=== PATIENT | female | born 2000 ===

== ENCOUNTER 2024-09-20 21:29 | Inpatient (IN) | payer MEDICAID, SELFPAY ==
[2024-09-20 21:50] VITALS: BP 133/70; PULSE 70; RESP 16; TEMP 37.4; O2SAT 98; BMI 26.0
[2024-09-21] MEDS: traZODone HCL 50 MG TABLET PO
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
[2024-09-21 07:31] VITALS: BP 124/70; PULSE 95; RESP 14; TEMP 36.6; O2SAT 98
[2024-09-21 08:26] LABS: Estimated Average Glucose 88 mg/dL; Hemoglobin A1C 103.3152 umol/L; Hemoglobin A1c % 4.7 % (<6.0); Total Hemoglobin (HGBA1C) 3656.3042 umol/L
[2024-09-21 08:36] LABS: Alanine Aminotransferase 16 U/L (0-31); Albumin Level 4.7 g/dL (3.5-5.0); Alkaline Phosphatase 72 U/L (39-117); Anion Gap 15 (12-20); Aspartate Amino Transferase 23 U/L (5-31); Bilirubin Total 0.8 mg/dL (0.0-1.0); Blood Urea Nitrogen 11 mg/dL (9-16); Calcium 9.3 mg/dL (8.4-10.2); Carbon Dioxide 25 mmol/L (22-29); Chloride 105 mmol/L (96-108); Cholesterol 197 mg/dL (<200); Creatinine Clr Calc Pharmacy 100.1; Estimated Glomerular Filt Rate > 60; Glucose Random 92 mg/dL (60-115); HDL Cholesterol 74 mg/dL (>40); LDL Cholesterol Calculated 103 mg/dL (<100); Potassium 3.5 mmol/L (3.3-5.1); Sodium 141 mmol/L (135-145); Total Protein 7.4 g/dL (6.5-8.0); Triglycerides 100 mg/dL (<150)
--- NOTE | 2024-09-21 09:58 | P.HPPS_ITS ---
[facility] Date of Service: 09/21/24 Chief Complaint: unspecified depressive disorder, Bord per disorder Sources of Information: patient interviewed, chart reviewed and crisis/core team assessment reviewed HPI Subjective Notes: Huffman Warning and Section 12B Narrative: Patient is a 24-year-old female with history of PTSD and borderline personality disorder who presented to ER due to self inflicted laceration to left forearm and left thigh secondary to alcohol intoxication and argument with boyfriend. Per crisis report, patient presented to ER on a section 12 with laceration to her left forearm and left thigh which required stiches. 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 She denied SI/HI/VH/AH. Patient reports she and her fiance were drinking and packing up a [employer] to move to [place]. She denies this was a suicide attempt. She reports history of a suicide attempt when she was 13 via ingesting pills and trying to cut her wrist with a razor blade. denies any drug use. She reported she consumed 3 beers and 2 shots of alcohol. Denies history of detox admissions. Patient denies issues with sleep or appetite. Collateral was obtained from patient's boyfriend who states they got into a silly argument ; He states that they were both drinking and things got out of hand . He denies having any safety concerns. During admission assessment, patient presents alert and oriented x3. Calm and cooperative. patient stated, we were moving everything into a [employer]. We went and got some beers and vodka. I had not drank in a year and I feel I got too drunk and hurt myself . Patient reports she feels that she spiraled out of control due to the stress from moving. She reports history of cutting but denies suicide attempts. patient reports history of self-harming as a coping mechanism. Patient stated, I had not done it in a year. I just work out and run 4 miles a day now. I'm a very happy person. I want to be alive . Patient stated, my arm was intentional but my leg was not. I was resting my arm on my leg and it accidentally also got cut . Patient reports she does not have outpatient psychiatric providers and is not interested in starting psychiatric medications. Patient stated, medications made me feel worse. Therapy was the only thing that helped. I want to get back into therapy and will find a therapist when I go back home . When asked about crisis report, patient stated the information was not true and made it up because I did not want to end up here. I was drunk when they interviewed me and I don't remember telling them half of things . denies SI/HI/VH/AH. Past Psychiatric History: First inpatient psychiatric hospitalization. Does not have outpatient psychiatric providers. Does not take any psychiatric medications. Denies history of SA. History of SIB via cutting. Medical Evaluation Reviewed: Yes PMFSH Family History: denies Social History: lives with boyfriend. No kids. Works full-time. High school diploma. Substance History: Denies Trauma History: yes Diagnostics Vital Signs (24Hr): Vital Signs - 24 hr 09/20/24 21:50 09/21/24 07:31 Temperature 99.3 F 97.9 F Pulse Rate 70 95 Respiratory Rate 16 14 Blood Pressure 133/70 124/70 Pulse Oximetry 98 98 Oxygen Delivery Method Room Air Room Air BMI result Body Mass Index 26.0 Labs 09/21/24 07:46 Labs: Laboratory Results - last 48 hr 09/21/24 07:46 Sodium 141 Potassium 3.5 Chloride 105 Carbon Dioxide 25 Anion Gap 15 BUN 11 Creatinine 0.78 Estim Creat Clear Calc 100.1 Estimated GFR > 60 Random Glucose 92 Estimat Average Glucose 88 Hemoglobin A1c % 4.7 Calcium 9.3 Total Bilirubin 0.8 AST 23 ALT 16 Alkaline Phosphatase 72 Total Protein 7.4 Albumin 4.7 Triglycerides 100 Cholesterol 197 LDL Cholesterol, Calc 103 H HDL Cholesterol 74 Meds/Allergies Meds Home Medications ?Medication ?Instructions ?Recorded ?Confirmed ?Type fluticasone propionate 50 1 spray intranasal BEDTIME 09/20/24 09/20/24 History mcg/actuation nasal spray,suspension Allergies Allergies Allergy/AdvReac Type Severity Reaction Status Date / Time No Known Allergies Allergy Verified 09/20/24 21:50 Mental Status Exam Mental Status Exam Narrative: Pt is alert and oriented; behavior is cooperative, friendly and calm; dressed in casual attire; mood is described as okay ; eye contact appropriate; Speech is normal rate, volume and not pressured; thought process is organized; Thought content is on discharge; otherwise pertinent to relevant topics and without any delusional content, paranoid ideations or grandiosity; denies SI/HI/VH/AH. Assessment & Plan Assessment & Plan (1) PTSD (post-traumatic stress disorder): Status: Acute Code(s): F43.10 - Post-traumatic stress disorder, unspecified (2) Borderline personality disorder: Status: Acute Code(s): F60.3 - Borderline personality disorder Plan Patient is a 24-year-old female with history of PTSD and borderline personality disorder who presented to ER due to self inflicted laceration to left forearm and left thigh secondary to alcohol intoxication and argument with boyfriend. Plan: 12B 15 minute safety checks obtain collateral encourage groups referral to outpatient psychiatric providers discharge planning Patient educated on: diagnosis and medication risk/benefits Reason for continued inpatient stay Substantial Risk for: med/psych decompensation Statement Statement: I have reviewed the history and physical and performed a pertinent examination on my patient. No changes have occurred unless specified. If the History and Physical was not performed prior to admission, the Hospitalist's service will be consulted for completing the admission physical. Time Spent With Patient Time: Total time managing care of this patient today _60___ minutes.
--- NOTE | 2024-09-21 12:14 | P.HPHOSP_ITS ---
History of Present Illness Date of Service: 09/21/24 Attending physician on admission: Gerry Barth Chief Complaint: Medical evaluation 24 year old female with PMH of Depressive DO, Borderline personality DO, PTSD and history of self harm presented from outside hospital after she presented with two self inflicted lacerations to her forearm and thigh. She has previous suicide attempts at age 15-16 which she attributes to alcohol use. She is otherwise healthy and does not have any medical concerns. She reports that she misses her family and wants to go home. Labs unremarkable, EKG unremarkable on review. Review of Systems 2 Review of Systems: She denies any SOB, chest pain, abdominal pain, dizziness, headaches or pain in either laceration. Yes all other systems are reviewed and are negative PMFSH Functional capacity: independent ambulation Patient : No Pertinent family history: No pertinent medical history reported Social History Household Members: Significant Other Housing: House Do you presently have visiting nurse or other home services: No Patient Tobacco Use Status: Former Tobacco user Tobacco use type: Smokeless Tobacco Smoked in Last 30 Days: No e-Cigarette/Vaping Use: Former Use Patient Interested in Nicotine Replacement: No Patient Given Instructions on How to Stop Smoking: Yes Date Education Initiated: 09/21/24 Second Hand Smoke Exposure: No Use of substances other than those prescribed or required for medical reasons: Yes Substance Use Type: Marijuana Substance Use Frequency: Daily Last Used Substance: Just Prior to Admission Currently Displaying Signs/Symptoms of Drug Intoxication Withdrawal: No Any prior treatment program specific to substance use: Yes (Rehab at 16 for drugs, MDMA, ecstasy) Have you been hit, kicked, punched, or otherwise hurt by someone within the past year? If so, by whom?: No Do you feel safe in your current relationship?: Yes Is there a partner from a previous relationship who is making you feel unsafe now?: No Are you made to feel afraid or neglected: No Advance Directives: No Advance Directives Information Provided: No Do you have thoughts of harming others: None Do you have a plan to hurt others: No Plan Recently lost weight without trying: Yes How much weight loss: 2-13 pounds Eating poorly because of decreased appetite: No Nutrition screen score: 3 Nutrition Risks: No Nutritional Risk Patient : No : No Poor oral hygiene: No service: No Sexual orientation: Straight/Heterosexual Meds Allergies Allergy/AdvReac Type Severity Reaction Status Date / Time No Known Allergies Allergy Verified 09/20/24 21:50 Active Medications: Current Medications Acetaminophen (Acetaminophen 325 Mg Tablet) 650 mg PO Q6H PRN PRN Reason: Headache/Pain, Scale 1-10 Al Hydroxide/Mg Hydroxide (Magnesium Hydrox/Alum Hydrox 30 Ml Oral.Susp) 30 ml PO Q6H PRN PRN Reason: Heartburn/Nausea Hydroxyzine HCl (Hydroxyzine Hcl 25 Mg Tablet) 25 mg PO Q6H PRN PRN Reason: mild anxiety Magnesium Hydroxide (Milk Of Magnesia 30 Ml Oral.Susp) 30 ml PO DAILY PRN PRN Reason: Constipation Nicotine Polacrilex (Nicotine Polacrilex 2 Mg Gum) 4 mg BUCCAL Q2H PRN PRN Reason: Nicotine Cravings Trazodone HCl (Trazodone Hcl 50 Mg Tablet) 50 mg PO BEDTIME MRX1 PRN PRN Reason: Insomnia Last Admin: 09/21/24 00:00 Dose: 50 mg Home Medications ?Medication ?Instructions ?Recorded ?Confirmed ?Last Taken ?Type fluticasone propionate 50 1 spray intranasal BEDTIME 09/20/24 09/20/24 Unknown History mcg/actuation nasal spray,suspension Physical Exam 2 Vital Signs and Narrative: Vital Signs: Last Vital Signs Temp 97.9 F 09/21/24 07:31 Pulse 95 09/21/24 07:31 Resp 14 09/21/24 07:31 BP 124/70 09/21/24 07:31 Pulse Ox 98 09/21/24 07:31 O2 Del Method Room Air 09/21/24 07:31 BMI result Body Mass Index 26.0 Alert and oriented X3, able to give good history. Neuro: CN II-X11 intact, no deficits, visual acuity intact EYES: PERRLA, EOM intact ENT: hearing intact, lips moist Cardiac: S1 S2 RRR, no murmur, no JVD, no edema in Lower ext Pulmonary: lungs clear to auscultation, No increased WOB. Abdominal: BS active in all 4 quadrants, no guarding, tenderness, rebounding, obesity MSK: Strength 5/5 upper and lower extremities, Gait steady : no CVA tenderness no bladder distension Extremities: no edema in lower extremities Psych: mood stable Skin: Warm and dry, Intact. 7.5 cm laceration with 15 sutures to Left forearm without evidence of redness, warmth or drainage, well approximated, additionally Left upper thigh 5 cm laceration with 8 intact sutures, no evidence of redness, warmth or swelling. Well approximated. Several linear healed scars to inner right wrist Results Labs 09/21/24 07:46 Labs: Laboratory Results - last 24 hr 09/21/24 07:46 Anion Gap 15 Estim Creat Clear Calc 100.1 Estimated GFR > 60 Random Glucose 92 Estimat Average Glucose 88 Hemoglobin A1c % 4.7 Calcium 9.3 Total Bilirubin 0.8 AST 23 ALT 16 Alkaline Phosphatase 72 Total Protein 7.4 Albumin 4.7 Triglycerides 100 Cholesterol 197 LDL Cholesterol, Calc 103 H HDL Cholesterol 74 Assessment and Plan (1) Laceration of forearm: Qualifiers: Encounter type: initial encounter Laterality: left Qualified Code(s): S51.812A - Laceration without foreign body of left forearm, initial encounter Status: Acute Plan PTSD/Borderline personality disorder/Depression /Self harm. Treatment per psychiatric team. Left Volar forearm laceration/Left upper anterior thigh laceration Keep area Clean and dry DCD for protection Monitor for infection. On exam today lacerations are well approximated and healing with no evidence of infection. Remove sutures in 7-10 days at PCP office Medical evaluation completed, will sign off. Reconsult as needed Quality Stroke Does the patient have a stroke diagnosis?: No VTE Prior VTE?: No VTE Risk Level:: Medical - low VTE Device Contraindication: Treatment Not Indicated VTE Drug Contraindication: Treatment Not Indicated
--- NOTE | 2024-09-21 15:34 | MHC.CLN ---
CONSULT HT 5'3 WT 66.5 KG BMI 26 PT IS OVER WT FOR HT REPORTS EATING WELL NO PREVIOUS WT HX REGULAR DIET PT IS OF VERY LOW NUTRITION RISK MONITOR PO INTAKE AND CONTINUE CURRENT CARE PLAN
[2024-09-21 20:00] VITALS: BP 141/70; PULSE 81; RESP 16; TEMP 37.1; O2SAT 98
[2024-09-21] MEDS: Acetaminophen 325 MG TABLET 650 MG PO (20:54)
[2024-09-22 07:00] VITALS: BMI 26.1
[2024-09-22] MEDS: Acetaminophen 325 MG TABLET 650 MG PO (08:09)
--- NOTE | 2024-09-22 09:16 | HO.PSYCHPN ---
Subjective Subjective Date of Service: 09/22/24 Reason For Visit: unspecified depressive disorder, Bord per disorder Subjective Notes: Section 12B Interim History: Active on unit, social with peers. attending groups. Patient reports feeling good ; pt stated, I visited with my boyfriend yesterday and spoke to my mom on the phone. I'm going to find a DBT therapist in [place] and try to find some DBT groups to help me with my BPD . She continues to decline psychiatric medications and would like to focus on therapy. Pt reports she is looking forward to discharging and seeing her new home. per nursing, slept 8 hours last night. denies SI/HI/VH/AH. 12b up on 09/23/24. Attending Groups: Yes Mental Status Exam Mental Status Exam Narrative: Pt is alert and oriented; behavior is cooperative, friendly and calm; dressed in casual attire; mood is described as good ; eye contact appropriate; Speech is normal rate, volume and not pressured; thought process is organized, future oriented; Thought content is on discharge and tx; denies SI/HI/VH/AH. Diagnostics Vital Signs (24Hr): Vital Signs - 24 hr 09/21/24 20:00 Temperature 98.7 F Pulse Rate 81 Respiratory Rate 16 Blood Pressure 141/70 H Pulse Oximetry 98 Oxygen Delivery Method Room Air BMI result Body Mass Index 26.0 Labs 09/21/24 07:46 Labs: Laboratory Results - last 48 hr 09/21/24 07:46 Sodium 141 Potassium 3.5 Chloride 105 Carbon Dioxide 25 Anion Gap 15 BUN 11 Creatinine 0.78 Estim Creat Clear Calc 100.1 Estimated GFR > 60 Random Glucose 92 Estimat Average Glucose 88 Hemoglobin A1c % 4.7 Calcium 9.3 Total Bilirubin 0.8 AST 23 ALT 16 Alkaline Phosphatase 72 Total Protein 7.4 Albumin 4.7 Triglycerides 100 Cholesterol 197 LDL Cholesterol, Calc 103 H HDL Cholesterol 74 Medications Medications Current Medications Acetaminophen (Acetaminophen 325 Mg Tablet) 650 mg PO Q6H PRN PRN Reason: Headache/Pain, Scale 1-10 Last Admin: 09/22/24 08:09 Dose: 650 mg Al Hydroxide/Mg Hydroxide (Magnesium Hydrox/Alum Hydrox 30 Ml Oral.Susp) 30 ml PO Q6H PRN PRN Reason: Heartburn/Nausea Hydroxyzine HCl (Hydroxyzine Hcl 25 Mg Tablet) 25 mg PO Q6H PRN PRN Reason: mild anxiety Magnesium Hydroxide (Milk Of Magnesia 30 Ml Oral.Susp) 30 ml PO DAILY PRN PRN Reason: Constipation Nicotine Polacrilex (Nicotine Polacrilex 2 Mg Gum) 4 mg BUCCAL Q2H PRN PRN Reason: Nicotine Cravings Trazodone HCl (Trazodone Hcl 50 Mg Tablet) 50 mg PO BEDTIME MRX1 PRN PRN Reason: Insomnia Last Admin: 09/21/24 00:00 Dose: 50 mg Allergies Allergies Allergy/AdvReac Type Severity Reaction Status Date / Time No Known Allergies Allergy Verified 09/20/24 21:50 Assessment & Plan Assessment & Plan (1) PTSD (post-traumatic stress disorder): Status: Acute Code(s): F43.10 - Post-traumatic stress disorder, unspecified (2) Borderline personality disorder: Status: Acute Code(s): F60.3 - Borderline personality disorder Plan Patient is a 24-year-old female with history of PTSD and borderline personality disorder who presented to ER due to self inflicted laceration to left forearm and left thigh secondary to alcohol intoxication and argument with boyfriend. Plan: 12B 15 minute safety checks obtain collateral encourage groups referral to outpatient psychiatric providers discharge planning 09/22: Active on unit, social with peers. attending groups. Patient reports feeling good ; pt stated, I visited with my boyfriend yesterday and spoke to my mom on the phone. I'm going to find a DBT therapist in [place] and try to find some DBT groups to help me with my BPD . She continues to decline psychiatric medications and would like to focus on therapy. Pt reports she is looking forward to discharging and seeing her new home. per nursing, slept 8 hours last night. denies SI/HI/VH/AH. 12b up on 09/23/24. Patient educated on: diagnosis, medication risk/benefits and therapeutic strategies Reason for continued inpatient stay Substantial Risk for: stable for discharge Time Spent With Patient Time: Total time managing care of this patient today _20___ minutes.
[2024-09-22 20:00] VITALS: BP 126/76; PULSE 102; RESP 16; TEMP 36.4; O2SAT 97
[2024-09-22] MEDS: Ibuprofen 400 MG TABLET PO (20:05)
[2024-09-23 08:00] VITALS: BP 130/74; PULSE 107; RESP 14; TEMP 36.6; O2SAT 99
--- NOTE | 2024-09-23 08:48 | P.DS_ITS ---
DS: Providers Provider Date of Service: 09/23/24 Date of admission: 09/20/24 21:29 Date of discharge: 09/23/24 Primary care physician: Unknown Physician Admitting clinician: Indiana Shepherd Attending physician on admission: Gerry Barth Consults: 09/20/24 21:50 Consult to Hospitalist Routine Comment: Consulting Provider: [facility] Hospitalists Reason For Exam: new admit, h&p Attending physician on discharge: Gerry Barth Discharging clinician: Indiana Shepherd DS: Diagnosis Discharge Diagnosis (1) PTSD (post-traumatic stress disorder): Status: Acute (2) Borderline personality disorder: Status: Acute Mental Status Exam Mental Status Exam Narrative: Pt is alert and oriented; behavior is cooperative, friendly and calm; dressed in casual attire; mood is described as good ; eye contact appropriate; Speech is n ormal rate, volume and not pressured; thought process is organized, future oriented; Thought content is on discharge and tx; denies SI/HI/VH/AH. Data Data Completed and Pending Completed studies during hospitalization [Text1]: 09/21/24 07:46 Sodium 141 Potassium 3.5 Chloride 105 Carbon Dioxide 25 Anion Gap 15 BUN 11 Creatinine 0.78 Estim Creat Clear Calc 100.1 Estimated GFR > 60 Random Glucose 92 Estimat Average Glucose 88 Hemoglobin A1c % 4.7 Calcium 9.3 Total Bilirubin 0.8 AST 23 ALT 16 Alkaline Phosphatase 72 Total Protein 7.4 Albumin 4.7 Triglycerides 100 Cholesterol 197 LDL Cholesterol, Calc 103 H HDL Cholesterol 74 DS: Summary Hospital Course Hospital Course: Patient is a 24-year-old female with history of PTSD and borderline personality disorder who presented to ER due to self inflicted laceration to left forearm and left thigh secondary to alcohol intoxication and argument with boyfriend. Per crisis report, patient presented to ER on a section 12 with laceration to her left forearm and left thigh which required stiches. 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 She denied SI/HI/VH/AH. Patient reports she and her fiance were drinking and packing up a [employer]Ha[employer] to move to [place]. She denies this was a suicide attempt. She reports history of a suicide attempt when she was 13 via ingesting pills and trying to cut her wrist with a razor blade. denies any drug use. She reported she consumed 3 beers and 2 shots of alcohol. Denies history of detox admissions. Patient denies issues with sleep or appetite. Collateral was obtained from patient's boyfriend who states they got into a silly argument ; He states that they were both drinking and things got out of hand . He denies having any safety concerns. During admission assessment, patient presents alert and oriented x3. Calm and cooperative. patient stated, we were moving everything into a [employer]-Haul. We went and got some beers and vodka. I had not drank in a year and I feel I got too drunk and hurt myself . Patient reports she feels that she spiraled out of control due to the stress from moving. She reports history of cutting but denies suicide attempts. patient reports history of self-harming as a coping mechanism. Patient stated, I had not done it in a year. I just work out and run 4 miles a day now. I'm a very happy person. I want to be alive . Patient stated, my arm was intentional but my leg was not. I was resting my arm on my leg and it accidentally also got cut . Patient reports she does not have outpatient psychiatric providers and is not interested in starting psychiatric medications. Patient stated, medications made me feel worse. Therapy was the only thing that helped. I want to get back into therapy and will find a therapist when I go back home . When asked about crisis report, patient stated the information was not true and made it up because I did not want to end up here. I was drunk when they interviewed me and I don't remember telling them half of things . denies SI/HI/VH/AH. Plan: 12B 15 minute safety checks obtain collateral encourage groups referral to outpatient psychiatric providers discharge planning Active on unit, social with peers. attending groups. Patient reports feeling good ; pt stated, I visited with my boyfriend yesterday and spoke to my mom on the phone. I'm going to find a DBT therapist in [place] and try to find some DBT groups to help me with my BPD . She continues to decline psychiatric medications and would like to focus on therapy. Pt reports she is looking forward to discharging and seeing her new home. per nursing, slept 8 hours last night. denies SI/HI/VH/AH. 12b up on 09/23/24. Status at Discharge Cognitive/behavioral status at discharge: Patient has insight and demonstrates good judgment in terms of wanting to pursue treatment. Patient has a safety plan that includes presenting to the closest ER or calling 911 if feeling unsafe. Functional status at discharge: independent ambulation Overall status at discharge: patient is back to baseline Time Spent with Patient Time attestation: Total time managing care of this patient today __20__ minutes. Time spent: Less than 30 minutes Discharge Plan Discharge Anticipated Discharge Date/Time: 09/23/24 11:00 Patient Disposition: Home, Self-Care Discharge Diagnosis: PTSD, Borderline Personality d/o Referrals: Physician,Unknown J [Primary Care Provider] - 1 Week Discharge Medications: Discontinued fluticasone propionate 50 mcg/actuation spray,suspension 1 spray intranasal BEDTIME Discharge Orders: Discharge Order (Routine); Ordered 09/23/24 Ordered By: Indiana Shepherd Diet: Regular diet Activity on Discharge: As tolerated Stand Alone Forms: Patient Portal Discharge page, Community Support Print Language: Maldivian Care Plan Goals: Maintain mood and safe behaviors Take medications as prescribed Practice coping skills Continue with outpatient providers and reach out to them as needed Health Concerns: Mood stability and behaviors Plan of Treatment: Follow up with your PCP, psychiatric provider and other outpatient providers regarding above concerns Take medications as prescribed Assessment: Patient has insight and demonstrates good judgment in terms of wanting to pursue treatment. Patient has a safety plan that includes presenting to the closest ER or calling 911 if feeling unsafe. Discharge Date/Time: 09/23/24 11:00
== END 2024-09-23 11:00 | disposition home or self-care (01) | DRG 752 ==
PROVIDERS: Admitting Provider Psychiatry & Neurology Psychiatry; Responsible Provider Registered Nurse; Visit Provider Psychiatry & Neurology Psychiatry
DX: F60.3 Borderline personality disorder (principal); S71.112A Laceration without foreign body, left thigh, initial encounter; S51.812A Laceration without foreign body of left forearm, initial encounter; F43.10 Post-traumatic stress disorder, unspecified; W26.9XXA Contact with unspecified sharp object(s), initial encounter; Z87.891 Personal history of nicotine dependence; Z91.51 Personal history of suicidal behavior; Z91.52 Personal history of nonsuicidal self-harm
CPT/HCPCS: 36415; 80053; 80061; 83036

== ENCOUNTER → 2024-09-20 21:29 | Outpatient (BNV) | payer OTHER, SELFPAY | PROVIDERS: Admitting Provider Psychiatry & Neurology Psychiatry; Responsible Provider Registered Nurse; Visit Provider Registered Nurse | DX: F60.3 Borderline personality disorder (principal); F43.11 Post-traumatic stress disorder, acute | CPT/HCPCS: 99231; 99233 ==

== ENCOUNTER → 2024-09-20 21:29 | Outpatient (BNV) | payer MEDICAID, SELFPAY | PROVIDERS: Admitting Provider Psychiatry & Neurology Psychiatry; Visit Provider Nurse Practitioner Family | DX: S51.812A Laceration without foreign body of left forearm, initial encounter (principal) | CPT/HCPCS: 99222 ==